=== PATIENT | female | born 1965 | race African-American/Black ===

== ENCOUNTER 2018-02-20 22:21 | Emergency (ER) | payer BC ==
--- NOTE | 2018-02-20 23:11 | ED ---
Lower Extremity - HPI Summary HPI Summary: Complains of right posterior knee pain starting last night. Patient admits that she was walking a lot and moving boxes yesterday, denies any fall or trauma , loss of sensation or function, or range of motion. No anti-coag. No history of blood clots. No prior history of same pain. Medical history is none. - History of Current Complaint Chief Complaint: EDExtremityLower Stated Complaint: RIGHT KNEE PAIN , LEFT LEG TINGLING Time Seen by Provider: 02/20/18 22:56 Hx Obtained From: Patient Mechanism Of Injury: Unknown Onset of Pain: Hours Onset/Duration: Hours Severity Initially: Mild Severity Currently: Mild Pain Intensity: 2 Pain Scale Used: 0-10 Numeric Timing: Constant Location: Is Discrete @ Character Of Pain: Aching Associated Signs And Symptoms: Positive: Swelling, Knee Pain Aggravating Factor(s): Standing, Ambulation Alleviating Factor(s): Rest Able to Bear Weight: Yes - Allergies/Home Medications Allergies/Adverse Reactions: Allergies Allergy/AdvReac Type Severity Reaction Status Date / Time No Known Allergies Allergy Verified 02/20/18 22:33 PMH/Surg Hx/FS Hx/Imm Hx Endocrine/Hematology History: Denies: Hx Anticoagulant Therapy Cardiovascular History: Denies: Hx Cardiac Arrest History: Denies: Hx Dialysis Musculoskeletal History: Denies: Hx Osteoporosis Neurological History: Denies: Hx CVA - Surgical History Surgery Procedure, Year, and Place: GALL BLADDER REMOVED 2009 Infectious Disease History: No Infectious Disease History: Denies: Traveled Outside the [place] in Last 30 Days - Social History Alcohol Use: Occasionally Substance Use Type: Reports: None Smoking Status (MU): Never Smoked Tobacco Review of Systems Constitutional: Negative Eyes: Negative ENT: Negative Positive: Palpitations Respiratory: Negative Gastrointestinal: Negative Genitourinary: Negative Positive: Arthralgia Skin: Negative Neurological: Negative Psychological: Normal All Other Systems Reviewed And Are Negative: Yes Physical Exam - Summary Physical Exam Summary: Mild swelling to right knee. No erythema, ecchymosis, extra warmth, deformity noted to right knee. No tenderness to palpation. No decrease in range of motion of right knee. Nontender. No erythema, ecchymosis, tenderness to extremity distal to right knee. Full range of motion of right ankle. PMS intact distally Triage Information Reviewed: Yes Vital Signs On Initial Exam: Initial Vitals Temp Pulse Resp BP Pulse Ox 98.1 F 83 15 129/81 97 02/20/18 22:30 02/20/18 22:30 02/20/18 22:30 02/20/18 22:30 02/20/18 22:30 Vital Signs Reviewed: Yes Appearance: Positive: Well-Appearing Skin: Positive: Warm Head/Face: Positive: Normal Head/Face Inspection Eyes: Positive: Normal Neck: Positive: Supple Respiratory/Lung Sounds: Positive: Clear to Auscultation Cardiovascular: Positive: Normal Abdomen Description: Positive: Nontender Pelvic Exam: Positive: External Exam Normal Musculoskeletal: Positive: Normal Neurological: Positive: Normal Psychiatric: Positive: Normal AVPU Assessment: Alert - [place] Coma Scale Best Eye Response: 4 - Spontaneous Best Motor Response: 6 - Obeys Commands Best Verbal Response: 5 - Oriented Coma Scale Total: 15 Diagnostics - Vital Signs Vital Signs Temp Pulse Resp BP Pulse Ox 02/20/18 22:30 98.1 F 83 15 129/81 97 - Laboratory Lab Statement: Any lab studies that have been ordered have been reviewed, and results considered in the medical decision making process. - Ultrasound No standard instances Ultrasound Interpretation: No Acute Changes - Ultrasound right lower extremity negative for DVT Ultrasound Interpretation Completed By: Radiologist Lower Extremity Course/Dx - Course Course Of Treatment: Complains of right posterior knee pain starting last night. Patient admits that she was walking a lot and moving boxes yesterday, denies any fall or trauma, loss of sensation or function, or range of motion. No anti-coag. No history of blood clots. No prior history of same pain. Medical history is none. Physical exam:Mild swelling to right knee. No erythema, ecchymosis, extra warmth, deformity noted to right knee. No tenderness to palpation. No decrease in range of motion of right knee. Nontender. No erythema, ecchymosis, tenderness to extremity distal to right knee. Full range of motion of right ankle. PMS intact distally. Vital signs within normal limits. Ultrasound right lower extremity negative for DVT. - Diagnoses Provider Diagnoses: Knee sprain Discharge - Sign-Out/Discharge Documenting (check all that apply): Patient Departure - Discharge Plan Condition: Stable Disposition: HOME Patient Education Materials: Knee Sprain (ED) Referrals: Marjorie Abraham MD [Primary Care Provider] - Rosenda Guerrero MD [Medical Doctor] - Additional Instructions: Ice, rest, ibuprofen for pain and swelling. Follow-up with orthopedics if pain does not improve in one week. Return to the ED for any new or worsening symptoms - Billing Disposition and Condition Condition: STABLE Disposition: Home
--- NOTE | 2018-02-20 23:55 | RAD ---
EXAM: US Duplex Right Lower Extremity Veins CLINICAL HISTORY: 52 years old, female; Pain; Leg, upper and leg, lower; Bilateral TECHNIQUE: Real-time duplex ultrasound scan of the right lower extremity veins integrating B-mode two-dimensional vascular structure, Doppler spectral analysis, color flow Doppler imaging and compression. COMPARISON: No relevant prior studies available. FINDINGS: Deep veins: Normal. No DVT in the visualized common femoral, femoral, proximal deep femoral or popliteal veins. The veins demonstrate normal color flow, are normally compressible, with normal phasic flow and/or augmentation response. Superficial veins: Normal. No thrombus in the visualized great saphenous vein. Soft tissues: Normal. No popliteal cyst. IMPRESSION: Normal right lower extremity duplex venous ultrasound.
[2018-02-21] MEDS ORDERED: Ibuprofen TAB* 600 MG PO ONE (00:29)
[2018-02-21 01:04] VITALS: BP 132/79
== END 2018-02-21 01:03 | disposition home or self-care (01) ==
LOC: ED 22:21
DX: S83.91XA Sprain of unspecified site of right knee, initial encounter (principal); X50.9XXA Other and unspecified overexertion or strenuous movements or postures, initial encounter; Y93.9 Activity, unspecified; Y92.9 Unspecified place or not applicable; M79.605 Pain in left leg; M79.604 Pain in right leg
CPT/HCPCS: 99282; A9270-GY